=== PATIENT | female | born 1975 | race African-American/Black ===

== ENCOUNTER → 2017-03-06 | Outpatient (CLI) | payer OTHER ==
[~2017-03-06] MED LIST: ACCUNEB SO1.25 MG/1 INH; COUMADIN 5 MG TA5 M1 PO; ELIQUIS2.5 MG PO; HYDROCODONE-AP1 EAC6 PO; PROCARDIA10 MG PO; SYMBICORT80 MCG/4.1 INH
== END ==
LOC: M.CT 11:30
DX: S06.0X0A Concussion without loss of consciousness, initial encounter (principal); E66.01 Morbid (severe) obesity due to excess calories; Z71.3 Dietary counseling and surveillance; X58.XXXA Exposure to other specified factors, initial encounter; Y93.89 Activity, other specified; Y92.89 Other specified places as the place of occurrence of the external cause; Y99.8 Other external cause status